=== PATIENT | female | born 1985 | race Caucasian/White ===

== ENCOUNTER → 2016-08-23 | Outpatient (CLI) | payer OTHER ==
[2016-08-23 17:10] LABS: BASO % 0.4 % (0.0-1.0); EOS # 0.1 K/mm3 (0.0-0.50); EOS % 1.6 % (0.0-3.0); LARGE UNSTAINED CELL # 0.1 K/mm3 (0.0-0.4); LYMPH % 33.5 % (24.0-44.0); MEAN CORPUSCULAR HEMOGLOBIN 32.5 pg (27.0-33.0); MEAN CORPUSCULAR HGB CONC 35.1 g/dl (32.0-36.5); MEAN CORPUSCULAR VOLUME 92.6 fl (80.0-96.0); MONO # 0.4 K/mm3 (0.0-0.8); MONO % 7.1 % (0.0-5.0); NEUTROPHILS # 3.3 K/mm3 (1.8-7.7); NEUTROPHILS % 55.4 % (36.0-66.0); PLATELET COUNT, AUTOMATED 186 k/mm3 (150-450); RED CELL DISTRIBUTION WIDTH 12.2 % (11.5-14.5); WHITE BLOOD COUNT 5.9 K/mm3 (4.0-10.0)
[2016-08-23 18:40] LABS: FREE T4 0.76 NG/DL (0.76-1.46); PERCENT SATURATION 29.3 % (13.2-37.4)
== END ==
LOC: M LAB 16:23
PROVIDERS: ATTEND Physician Assistant Medical
DX: L65.9 Nonscarring hair loss, unspecified (principal)

== ENCOUNTER → 2016-10-12 | Outpatient (REF) | payer OTHER | LOC: M LAB REF 17:16 | PROVIDERS: ATTEND Physician Assistant Medical | DX: N76.89 Other specified inflammation of vagina and vulva (principal) ==

== ENCOUNTER 2016-11-13 11:18 | Emergency (ER) | payer OTHER ==
[~2016-11-13] VITALS: Ht 162.6 cm; Wt 74.0 kg
[2016-11-13] MEDS ORDERED: ADDE20CA3 PO (11:30)
[2016-11-13] MEDS ORDERED: NAPR500T3 PO (11:32)
[2016-11-13] MEDS ORDERED: EXCETAB80 PO (11:33)
[2016-11-13] MEDS ORDERED: diphenhydrAMINE INJ 50MG/ML VIAL (J1200) As Ordered ONE (11:55)
[2016-11-13] MEDS ORDERED: METOCLOPRAMIDE INJ 10MG/2ML VIAL (J2765) IV ONE (12:00)
[2016-11-13] MEDS ORDERED: KETOROLAC 30 MG/ML VIAL (J1885) IV ONE (12:00)
[2016-11-13] MEDS ORDERED: NS 1,000 ML IV ONE (12:00)
[2016-11-13] MEDS ORDERED: diphenhydrAMINE INJ 50MG/ML VIAL (J1200) IV ONE (12:00)
[2016-11-13] MEDS ORDERED: PROMETHAZINE INJ 25 MG/ML VIAL (J2550) IV ONE (13:00)
[2016-11-13] MEDS ORDERED: REGL10TA6 PO (13:46)
[2016-11-13 13:52] VITALS: BP 128/82
== END 2016-11-13 13:57 | disposition home or self-care (01) ==
LOC: M ED 11:18
DX: G43.909 Migraine, unspecified, not intractable, without status migrainosus (principal)
CPT/HCPCS: 96361; 96374; 96375; 99283; J1200; J1885; J2765

== ENCOUNTER → 2017-02-08 | Outpatient (REF) | payer OTHER ==
[~2017-02-08] MED LIST: ADDE20CA3 PO; EXCETAB80 PO; NAPR500T3 PO; REGL10TA6 PO
== END ==
LOC: M LAB REF 17:35
PROVIDERS: ATTEND Physician Assistant Medical
DX: N76.89 Other specified inflammation of vagina and vulva (principal)

== ENCOUNTER 2017-11-01 09:01 | Emergency (ER) | payer OTHER | END 2017-11-01 09:46 | disposition home or self-care (01) | LOC: M ED 09:01 | DX: L03.213 Periorbital cellulitis (principal); J45.909 Unspecified asthma, uncomplicated; G43.909 Migraine, unspecified, not intractable, without status migrainosus; F32.9 Major depressive disorder, single episode, unspecified; Z87.891 Personal history of nicotine dependence; Z79.899 Other long term (current) drug therapy; Z88.8 Allergy status to other drugs, medicaments and biological substances | CPT/HCPCS: 99283 ==

== ENCOUNTER → 2018-05-02 | Outpatient (REF) | payer OTHER ==
[~2018-05-02] MED LIST changes: +BENA25CA4 PO; +DEXM1CAP16 PO; +KEFL500C17 PO; +MEDR4PAK PO; +NAPR-885 PO; -NAPR500T3 PO; +XYZA5TAB4 PO
[2018-05-02 15:19] LABS: CHLAMYDIA DNA AMPLIFICATION NEGATIVE (NEGATIVE); GC DNA AMPLIFICATION NEGATIVE (NEGATIVE)
== END ==
LOC: M LAB REF 12:23
PROVIDERS: ATTEND Physician Assistant Medical
DX: N76.0 Acute vaginitis (principal)

== ENCOUNTER 2019-01-28 13:58 | Emergency (ER) | payer OTHER ==
[~2019-01-28] VITALS: Ht 162.6 cm; Wt 72.5 kg
[2019-01-28] MEDS ORDERED: AMPH1CAP5 PO (14:07)
[2019-01-28] MEDS ORDERED: ADDE10TA PO (14:07)
[2019-01-28] MEDS ORDERED: RABIES IMMUNE GLOBULIN 1500 INTERNATIONAL UNIT/5ML VIAL (90375) IM ONE (14:30)
[2019-01-28] MEDS ORDERED: RABIES VACCINE HUMAN 2.5 INTERNATIONAL UNITS/ML VIAL (90675) IM ONE (14:30)
[2019-01-28 15:38] VITALS: BP 115/74
== END 2019-01-28 15:39 | disposition home or self-care (01) ==
LOC: M ED 13:58
DX: Z20.3 Contact with and (suspected) exposure to rabies (principal)

== ENCOUNTER 2019-01-31 17:27 | Emergency (ER) | payer OTHER ==
[~2019-01-31] VITALS: Ht 162.6 cm; Wt 72.7 kg
[2019-01-31 17:27] VITALS: BP 108/57
[~2019-01-31 17:27] MED LIST changes: +ADDE10TA PO; +AMPH1CAP5 PO
[2019-01-31] MEDS ORDERED: RABIES VACCINE HUMAN 2.5 INTERNATIONAL UNITS/ML VIAL (90675) IM ONE (18:00)
== END 2019-01-31 18:21 | disposition home or self-care (01) ==
LOC: M ED 17:27
DX: Z20.3 Contact with and (suspected) exposure to rabies (principal)

== ENCOUNTER 2019-02-04 17:31 | Emergency (ER) | payer OTHER ==
[~2019-02-04] VITALS: Ht 154.9 cm; Wt 73.5 kg
[2019-02-04] MEDS ORDERED: RABIES VACCINE HUMAN 2.5 INTERNATIONAL UNITS/ML VIAL (90675) IM ONE (19:30)
[2019-02-04 19:32] VITALS: BP 115/74
== END 2019-02-04 19:40 | disposition home or self-care (01) ==
LOC: M ED 17:31
DX: Z20.3 Contact with and (suspected) exposure to rabies (principal)

== ENCOUNTER 2019-02-11 05:38 | Emergency (ER) | payer OTHER ==
[~2019-02-11] VITALS: Ht 162.6 cm; Wt 75.0 kg
[2019-02-11 05:39] VITALS: BP 117/73
[2019-02-11] MEDS ORDERED: RABIES VACCINE HUMAN 2.5 INTERNATIONAL UNITS/ML VIAL (90675) IM ONE (06:00)
== END 2019-02-11 06:21 | disposition home or self-care (01) ==
LOC: M ED 05:38
DX: Z20.3 Contact with and (suspected) exposure to rabies (principal)

== ENCOUNTER → 2020-05-04 | Outpatient (CLI) | payer OTHER ==
--- NOTE | 2020-05-04 18:43 | REP ---
INDICATION: DYSPNEA. COMPARISON: Comparison chest x-ray September 03, 2014. TECHNIQUE: Two views.. FINDINGS: The lungs are well inflated and free of infiltrate. The pleural angles are sharp. The heart size is normal. Pulmonary vasculature is not increased. No significant bony abnormality is seen. IMPRESSION: Negative chest x-ray. <Electronically signed by Alber Mendez > 05/04/20 [id number]
== END ==
LOC: M WUC 18:19
PROVIDERS: ATTEND Physician Assistant
DX: R06.00 Dyspnea, unspecified (principal)

== ENCOUNTER 2020-10-10 09:35 | Emergency (ER) | payer OTHER ==
[~2020-10-10] VITALS: Ht 162.6 cm; Wt 85.9 kg
[2020-10-10] MEDS ORDERED: FLUO20CA22 PO (09:54)
--- NOTE | 2020-10-10 10:20 | REP ---
INDICATION: pain COMPARISON: None. TECHNIQUE: AP, lateral, bilateral oblique and sunrise views. FINDINGS: Lateral view suggests a suprapatellar effusion. There is no definite acute fracture or dislocation. However correlation with patient's symptoms is recommended as a subtle injury involving the lateral tibial plateau cannot definitively be excluded. IMPRESSION: Suprapatellar effusion. As above. Clinical correlation is recommended. <Electronically signed by Ivan Wen > 10/10/20 [id number]
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
[2020-10-10 13:33] VITALS: BP 137/81
== END 2020-10-10 13:35 | disposition home or self-care (01) ==
LOC: M ED 09:35
DX: M25.462 Effusion, left knee (principal); S82.145A Nondisplaced bicondylar fracture of left tibia, initial encounter for closed fracture; V86.56XA Driver of dirt bike or motor/cross bike injured in nontraffic accident, initial encounter; G43.909 Migraine, unspecified, not intractable, without status migrainosus; F41.9 Anxiety disorder, unspecified; F33.9 Major depressive disorder, recurrent, unspecified; Z88.8 Allergy status to other drugs, medicaments and biological substances; Z79.899 Other long term (current) drug therapy

== ENCOUNTER → 2020-10-28 | Outpatient (CLI) | payer OTHER ==
[~2020-10-28] MED LIST changes: +FLUO20CA22 PO
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
== END ==
LOC: M SOG 09:03
PROVIDERS: ATTEND Orthopaedic Surgery Sports Medicine
DX: S82.125D Nondisplaced fracture of lateral condyle of left tibia, subsequent encounter for closed fracture with routine healing (principal); X58.XXXD Exposure to other specified factors, subsequent encounter; Y92.9 Unspecified place or not applicable

== ENCOUNTER 2020-11-02 08:43 | Outpatient (RCR) | payer OTHER | END 2020-11-03 | LOC: M PT 08:43 | PROVIDERS: ATTEND Orthopaedic Surgery Sports Medicine | DX: S82.125A Nondisplaced fracture of lateral condyle of left tibia, initial encounter for closed fracture (principal); X58.XXXA Exposure to other specified factors, initial encounter; Y92.9 Unspecified place or not applicable; Y93.9 Activity, unspecified; Y99.9 Unspecified external cause status ==

== ENCOUNTER → 2020-11-25 | Outpatient (CLI) | payer OTHER ==
--- NOTE | 2020-11-25 09:31 | REP ---
INDICATION: FX OF LATERAL CONDYLE. COMPARISON: Comparison radiographs of the left knee are from October 28, 2020. Comparison CT study October 10, 2020.. TECHNIQUE: Standing AP view of both knees is obtained. Blyn, lateral, and AP views of the left knee are obtained. FINDINGS: There is a very subtle interruption of the cortical line for the lateral tibial plateau on the AP radiograph unchanged. This is confirmed by CT imaging. The previously noted joint effusion is resolved. No other fracture is seen. No joint space narrowing is noted. IMPRESSION: The patient's known lateral tibial plateau fracture is essentially radiographically occult. No joint space narrowing is seen. The previously noted joint effusion is resolved. <Electronically signed by Alber Mendez > 11/25/20 [id number]
== END ==
LOC: M SOG 08:51
PROVIDERS: ATTEND Orthopaedic Surgery Sports Medicine
DX: S82.125D Nondisplaced fracture of lateral condyle of left tibia, subsequent encounter for closed fracture with routine healing (principal); X58.XXXD Exposure to other specified factors, subsequent encounter; Y92.9 Unspecified place or not applicable

== ENCOUNTER 2020-12-01 07:00 | Outpatient (RCR) | payer OTHER | END 2020-12-04 | LOC: M PT 07:00 | PROVIDERS: ATTEND Orthopaedic Surgery Sports Medicine | DX: S82.225A Nondisplaced transverse fracture of shaft of left tibia, initial encounter for closed fracture (principal); X58.XXXA Exposure to other specified factors, initial encounter; Y92.9 Unspecified place or not applicable; Y99.9 Unspecified external cause status; Y93.9 Activity, unspecified ==

== ENCOUNTER 2020-12-21 07:00 | Outpatient (RCR) | payer OTHER | END 2021-01-04 | LOC: M PT 07:00 | PROVIDERS: ATTEND Orthopaedic Surgery Sports Medicine | DX: S82.125A Nondisplaced fracture of lateral condyle of left tibia, initial encounter for closed fracture (principal); X58.XXXA Exposure to other specified factors, initial encounter; Y92.9 Unspecified place or not applicable; Y93.9 Activity, unspecified; Y99.9 Unspecified external cause status ==

== ENCOUNTER → 2021-05-11 | Outpatient (CLI) | payer OTHER | LOC: M RAD 17:00 | PROVIDERS: ATTEND Family Medicine | DX: Z30.433 Encounter for removal and reinsertion of intrauterine contraceptive device (principal) ==

== ENCOUNTER → 2021-05-27 | Outpatient (CLI) | payer OTHER ==
[2021-05-27 12:34] LABS: BASO % 0.2 % (0.0-1.0); EOS # 0.1 10^3/uL (0.0-0.5); EOS % 1.1 % (0.0-3.0); HEMATOCRIT 41.1 % (36.0-47.0); HEMOGLOBIN 13.5 g/dl (12.0-15.5); LYMPH # 1.7 10^3/uL (1.5-5.0); LYMPH % 21.5 % (24.0-44.0); MEAN CORPUSCULAR HEMOGLOBIN 31.5 pg (27.0-33.0); MEAN CORPUSCULAR HGB CONC 32.8 g/dl (32.0-36.5); MONO # 0.6 10^3/uL (0.0-0.8); MONO % 7.8 % (2.0-8.0); NEUTROPHILS # 5.5 10^3/uL (1.5-8.5); NEUTROPHILS % 68.5 % (36.0-66.0); PLATELET COUNT, AUTOMATED 235 10^3/uL (150-450); RED BLOOD COUNT 4.28 10^6/uL (4.00-5.40)
[2021-05-27 13:07] LABS: ERYTHROCYTE SEDIMENTATION RATE 7 mm/hr (0-20)
[2021-05-27 13:10] LABS: ALBUMIN 3.8 GM/DL (3.2-5.2); ALT/SGPT 35 U/L (12-78); BILIRUBIN,TOTAL 0.5 MG/DL (0.2-1.0); BLOOD UREA NITROGEN 15 MG/DL (7-18); CARBON DIOXIDE LEVEL 25 MEQ/L (21-32); CHLORIDE LEVEL 107 MEQ/L (98-107); CREATININE FOR GFR 0.72 MG/DL (0.55-1.30); GLOMERULAR FILTRATION RATE > 60.0 (>60); GLUCOSE, FASTING 94 MG/DL (70-100); POTASSIUM SERUM 4.4 MEQ/L (3.5-5.1); RHEUMATOID FACTOR QUANT < 10.0 IU/ML (<15.0); SODIUM LEVEL 139 MEQ/L (136-145); THYROXINE (T4) 5.5 UG/DL (4.5-12.0); TOTAL PROTEIN 7.2 GM/DL (6.4-8.2)
[2021-05-27 13:11] LABS: THYROID PEROXIDASE ANTIBODY < 28.0 U/ML (<60.0)
[2021-05-28 13:06] LABS: ANTINUCLEAR ANTIBODIES DIRECT Negative (Negative); THRYOGLOBULIN ANTIBODIES (ATA) < 1.0 IU/mL (0.0-0.9); THYROGLOBULIN QUANTITATIVE 10.2 ng/mL (1.5-38.5)
== END ==
LOC: M LAB 11:27
PROVIDERS: ATTEND Allergy & Immunology Allergy
DX: L50.1 Idiopathic urticaria (principal)

== ENCOUNTER → 2021-06-06 | Outpatient (REF) | payer OTHER ==
[~2021-06-06] MED LIST changes: +CETI10CH PO; +CLAR10CA3 PO; +FAMO20TA4 PO; +HYDR-3363 PO
== END ==
LOC: M LAB REF 16:46
PROVIDERS: ATTEND Nurse Practitioner Family
DX: J06.9 Acute upper respiratory infection, unspecified (principal); Z11.52 Encounter for screening for COVID-19

== ENCOUNTER → 2021-07-02 | Outpatient (CLI) | payer OTHER | LOC: M LABSMTC 10:45 | PROVIDERS: ATTEND Anesthesiology | DX: Z01.812 Encounter for preprocedural laboratory examination (principal); Z20.822 Contact with and (suspected) exposure to COVID-19 ==

== ENCOUNTER 2021-07-07 08:51 | Day surgery (SDC) | payer OTHER ==
[~2021-07-07] VITALS: Ht 162.6 cm; Wt 111.2 kg
[~2021-07-07 08:51] MED LIST changes: +LR 1,000 ML IV ONE
[2021-07-07] MEDS ORDERED: propofoL 200 MG/20 ML VIAL As Ordered ONE (09:51)
[2021-07-07] MEDS ORDERED: ROCURONIUM BROMIDE 50 MG/5 ML VIAL As Ordered ONE (09:51)
[2021-07-07] MEDS ORDERED: ONDANSETRON 4MG/2ML VIAL As Ordered ONE (09:51)
[2021-07-07] MEDS ORDERED: dexameTHASONE 4 MG/ML 1ML VIAL (J1100 PER 1MG) As Ordered ONE (09:51)
[2021-07-07] MEDS ORDERED: ACETAMINOPHEN 1000MG 100ML IV BTL (OFIRMEV) (J0131 PER 10MG) As Ordered ONE (09:51)
[2021-07-07] MEDS ORDERED: LIDOCAINE 2% 100MG/5ML SDV (FOR ANES.) As Ordered ONE (09:51)
[2021-07-07] MEDS ORDERED: KETOROLAC 60MG 2ML VIAL As Ordered ONE (09:51)
[2021-07-07] MEDS ORDERED: SUGAMMADEX SODIUM 500 MG/5 ML VIAL (BRIDION) As Ordered ONE (09:51)
[2021-07-07] MEDS ORDERED: fentaNYL 100 MCG/2 ML INJECTION As Ordered ONE ×2 (09:52→15:13)
[2021-07-07] MEDS ORDERED: MIDAZOLAM INJ 2MG/2ML VIAL (J2250 PER 1MG) As Ordered ONE (09:53)
[2021-07-07] MEDS: fentaNYL 100 MCG/2 ML INJECTION IV PRN ×4 (15:15→15:34)
[2021-07-07] MEDS ORDERED: LR 1,000 ML IV SCH (15:20)
[2021-07-07] MEDS ORDERED: ONDANSETRON 4MG/2ML VIAL IV PRN (15:20)
[2021-07-07] MEDS: MEPERIDINE INJ 25 MG/ML VIAL (J2175) IV PRN ×2 (15:28→15:34)
[2021-07-07] MEDS: oxyCODONE 5MG TAB PO PRN ×2 (15:28→16:06)
[2021-07-07 16:37] VITALS: BP 119/63
== END 2021-07-07 16:39 | disposition home or self-care (01) ==
LOC: M SDC 08:51
PROVIDERS: ATTEND Obstetrics & Gynecology
DX: Z30.2 Encounter for sterilization (principal); T83.39XA Other mechanical complication of intrauterine contraceptive device, initial encounter; N99.71 Accidental puncture and laceration of a genitourinary system organ or structure during a genitourinary system procedure; J45.909 Unspecified asthma, uncomplicated; F41.9 Anxiety disorder, unspecified; F32.9 Major depressive disorder, single episode, unspecified; Z88.8 Allergy status to other drugs, medicaments and biological substances; F10.10 Alcohol abuse, uncomplicated; Z86.16 Personal history of COVID-19; Z79.899 Other long term (current) drug therapy
CPT/HCPCS: 58562; 58670; 81025; 88300; J0131; J1100; J1885; J2175; J2250; J2405; J3010

== ENCOUNTER 2021-09-12 20:48 | Emergency (ER) | payer OTHER ==
[~2021-09-12] VITALS: Ht 162.6 cm; Wt 111.4 kg
[~2021-09-12 20:48] MED LIST changes: -LR 1,000 ML IV ONE
[2021-09-12 20:49] VITALS: BP 135/74
== END 2021-09-12 21:00 | disposition left against medical advice (07) ==
LOC: M ED 20:48
DX: Z53.21 Procedure and treatment not carried out due to patient leaving prior to being seen by health care provider (principal)

== ENCOUNTER → 2021-09-13 | Outpatient (CLI) | payer OTHER | LOC: M RAD 09:21 | PROVIDERS: ATTEND Nurse Practitioner Family | DX: M25.571 Pain in right ankle and joints of right foot (principal); M79.89 Other specified soft tissue disorders ==